=== PATIENT | male | born 1990 | race Caucasian/White ===

== ENCOUNTER 2018-05-21 21:54 | Inpatient (IN) | payer OTHER ==
[2018-05-21] MEDS ORDERED: NS 1,000 ML IV ONE ×2 (22:11)
--- NOTE | 2018-05-21 22:11 | EDPHY ---
H & P Stated Complaint: rlq abd pain start this am, vomit, fever this artem Time Seen by Provider: 05/21/18 22:11 HPI/ROS: HPI CHIEF COMPLAINT: Abdominal pain. Right lower quadrant. HISTORY OF PRESENT ILLNESS: This is a 27-year-old male, otherwise healthy denies significant medical history denies any significant abdominal surgery, presents emergency room with 1 day of abdominal pain. States early this morning he developed some abdominal pain. The discomfort is located in his right lower quadrant. It has been rather constant throughout the day. Describes it dull pain. Right lower quadrant. Associated nausea no diarrhea. He thought he was constipated. Patient denies fever, chest pain, shortness of breath. Past Medical History: Denies significant medical history Past Surgical History: Denies significant surgical history Social History: Denies drugs alcohol tobacco. Family History: Noncontributory ROS REVIEW OF SYSTEMS: 10 Systems were reviewed and negative with the exception of the elements mentioned in the history of present illness. Exam Constitutional triage nursing summary reviewed, vital signs reviewed, awake/ alert. Vital signs stable Eyes normal conjunctivae and sclera, EOMI, PERRLA. HENT normal inspection, atraumatic, moist mucus membranes, no epistaxis, neck supple/ no meningismus, no raccoon eyes. Respiratory clear to auscultation bilaterally, normal breath sounds, no respiratory distress, no wheezing. Cardiovascular rate normal, regular rhythm, no murmur, no edema, distal pulses normal. Gastrointestinal tender palpation right lower quadrant, no peritoneal signs,, no rebound, no guarding, normal bowel sounds, no distension, no pulsatile mass. Genitourinary no CVA tenderness. Musculoskeletal no midline vertebral tenderness, full range of motion, no calf swelling, no tenderness of extremities, no meningismus, good pulses, neurovascularly intact. Skin pink, warm, & dry, no rash, skin atraumatic. Neurologic awake, alert and oriented x 3, AAOx3, moves all 4 extremities equally, motor intact, sensory intact, CN II-XII intact, normal cerebellar, normal vision, normal speech. Psychiatric normal mood/affect. Heme/Lymph/Immune no lymphadenopathy. Differential Diagnosis: Differential diagnosis includes but is not limited to and in no particular order: Bowel obstruction, appendicitis, gallbladder disease, diverticulitis, colitis, enteritis, perforated viscus, gastritis, GERD , esophagitis, urinary tract infection, pyelonephritis, kidney stones Medical Decision Making: Plan for this patient IV establishment IV fluid bolus , CT scan abdomen pelvis with IV contrast rule out acute appendicitis. Basic blood work, NPO. Re-evaluation: CT scan abdomen pelvis with IV contrast concerning for ruptured appendicitis. Called to me by Dr. Raymond Plan for this patient 2nd L fluid, IV Invanz. NPO. I have asked surgery to see him Dr. Paulino. His abdominal exam he does not have peritonitis. However has right lower quadrant abdominal pain CT concerning for acute appendicitis. Source: Patient - Personal History Current Tetanus/Diphtheria Vaccine: Yes - Medical/Surgical History Hx Asthma: No Hx Chronic Respiratory Disease: No Hx Diabetes: No Hx Cardiac Disease: No Hx Renal Disease: No Hx Cirrhosis: No Hx Alcoholism: No Hx HIV/AIDS: No Hx Splenectomy or Spleen Trauma: No Other PMH: right hip abcess surg - Social History Smoking Status: Never smoked Constitutional: Initial Vital Signs Temperature (C) 36.9 C 05/21/18 21:58 Heart Rate 117 H 05/21/18 21:58 Respiratory Rate 20 05/21/18 21:58 Blood Pressure 136/90 H 05/21/18 21:58 O2 Sat (%) 96 05/21/18 21:58 O2 Delivery Mode Room Air Allergies/Adverse Reactions: No Known Allergies Allergy (Unverified 05/21/18 21:58) Home Medications: Medication Instructions Recorded NK [No Known Home Meds] 05/21/18 Medical Decision Making - Diagnostics Imaging Results: Imaging Impressions Abdomen CT 05/21/18 22:16 Impression: 1. Ill-defined thickened appendix with findings suspicious for surrounding phlegmon without definitive abscess. Probable ruptured appendicitis. Findings discussed with Chaka Bishop MD at 23:29 hour, 05/21/2018. - Data Points Laboratory Results: Laboratory Results 05/21/18 22:20 05/21/18 22:20 05/21/18 05/21/18 22:20 22:20 WBC 20.90 10^3/uL H 10^3/uL (3.80-9.50) RBC 5.45 10^6/uL 10^6/uL (4.40-6.38) Hgb 16.3 g/dL g/dL (13.7-17.5) Hct 47.5 % % (40.0-51.0) MCV 87.2 fL fL (81.5-99.8) MCH 29.9 pg pg (27.9-34.1) MCHC 34.3 g/dL g/dL (32.4-36.7) RDW 13.2 % % (11.5-15.2) Plt Count 298 10^3/uL 10^3/uL (150-400) MPV 10.2 fL fL (8.7-11.7) Neut % (Auto) 82.5 % H % (39.3-74.2) Lymph % (Auto) 11.6 % L % (15.0-45.0) Zapata % (Auto) 5.0 % % (4.5-13.0) Eos % (Auto) 0.2 % L % (0.6-7.6) Baso % (Auto) 0.2 % L % (0.3-1.7) Nucleat RBC Rel Count 0.0 % % (0.0-0.2) Absolute Neuts (auto) 17.24 10^3/uL H 10^3/uL (1.70-6.50) Absolute Lymphs (auto) 2.42 10^3/uL 10^3/uL (1.00-3.00) Absolute Monos (auto) 1.05 10^3/uL H 10^3/uL (0.30-0.80) Absolute Eos (auto) 0.05 10^3/uL 10^3/uL (0.03-0.40) Absolute Basos (auto) 0.04 10^3/uL 10^3/uL (0.02-0.10) Absolute Nucleated RBC 0.00 10^3/uL 10^3/uL (0-0.01) Immature Gran % 0.5 % % (0.0-1.1) Immature Gran # 0.10 10^3/uL 10^3/uL (0.00-0.10) Sodium 135 mEq/L mEq/L (135-145) Potassium 4.4 mEq/L mEq/L (3.5-5.2) Chloride 104 mEq/L mEq/L (97-110) Carbon Dioxide 20 mEq/l L mEq/l (22-31) Anion Gap 11 mEq/L mEq/L (6-14) BUN 10 mg/dL mg/dL (7-23) Creatinine 0.7 mg/dL mg/dL (0.7-1.3) Estimated GFR > 60 Glucose 109 mg/dL H mg/dL (70-100) Calcium 10.2 mg/dL mg/dL (8.5-10.4) Total Bilirubin 1.5 mg/dL H mg/dL (0.1-1.4) Conjugated Bilirubin 0.3 mg/dL mg/dL (0.0-0.5) Unconjugated Bilirubin 1.2 mg/dL H mg/dL (0.0-1.1) AST 33 IU/L IU/L (17-59) ALT 47 IU/L IU/L (21-72) Alkaline Phosphatase 58 IU/L IU/L (38-126) Total Protein 8.6 g/dL H g/dL (6.3-8.2) Albumin 5.1 g/dL H g/dL (3.5-5.0) Lipase 65 IU/L IU/L (23-300) Medications Given: Discontinued Medications Hydromorphone HCl (Dilaudid) 0.5 mg IVP EDNOW ONE Stop: 05/21/18 22:17 Last Admin: 05/21/18 22:31 Dose: 0.5 mg Sodium Chloride (Ns) 1,000 mls @ 0 mls/hr IV EDNOW ONE; Wide Open PRN Reason: Protocol Stop: 05/21/18 22:12 Last Admin: 05/21/18 22:28 Dose: 1,000 mls Sodium Chloride (Ns) 1,000 mls @ 0 mls/hr IV EDNOW ONE; Wide Open PRN Reason: Protocol Stop: 05/21/18 22:12 Last Admin: 05/21/18 22:32 Dose: 1,000 mls Ondansetron HCl (Zofran) 4 mg IVP EDNOW ONE Stop: 05/21/18 22:18 Last Admin: 05/21/18 22:28 Dose: 4 mg Departure - Departure Disposition: [facility] Clinical Impression: Abdominal pain Qualifiers: Abdominal location: unspecified location Qualified Code(s): R10.9 - Unspecified abdominal pain Acute appendicitis Qualifiers: Acute appendicitis type: with localized peritonitis Appendicitis gangrene presence: without gangrene Appendicitis perforation presence: unspecified whether perforation present Appendicitis abscess presence: without abscess Qualified Code(s): K35.30 - Acute appendicitis with localized peritonitis, without perforation or gangrene Condition: Fair
[2018-05-21] MEDS ORDERED: HYDROmorphONE/DILAUDID 2 MG/ML INJ IVP ONE (22:16)
[2018-05-21] MEDS ORDERED: ONDANSETRON 4 MG/2 ML VIAL IVP ONE (22:17)
[2018-05-21 22:32] LABS: PLATELET COUNT 298 10^3/uL (150-400)
[2018-05-21] MEDS ORDERED: IOHEXOL 350mgI/ML (OMNIPAQUE) 150 ML BTL IV ONE (22:50)
[2018-05-21] MEDS ORDERED: ERTAPENEM 1 GM in NS 100 ML IV ONE (23:34)
[2018-05-22] MEDS ORDERED: HEPARIN 5,000 UNIT/0.5 ML INJ ONE (00:07)
[2018-05-22] MEDS ORDERED: ceFAZolin 1 GM/5 ML SYR ONE (00:07)
[2018-05-22] MEDS ORDERED: ONDANSETRON 4 MG/2 ML VIAL IVP PRN ×2 (00:36→01:22)
[2018-05-22] MEDS ORDERED: ACETAMINOPHEN 500 MG TAB PO SCH (00:45)
[2018-05-22] MEDS ORDERED: MIDAZOLAM 2 MG/2 ML VIAL ONE (00:59)
[2018-05-22] MEDS ORDERED: fentaNYL 100 MCG/2 ML INJ ONE ×3 (00:59→03:18)
[2018-05-22] MEDS ORDERED: PROPOFOL/EMULSION 500 MG/50 ML BOTTLE IV ONE (01:00)
--- NOTE | 2018-05-22 01:12 | GHP ---
[f rep st] PREOP HISTORY AND PHYSICAL DATE OF ADMISSION: 05/21/2018 ADMITTING DIAGNOSIS: Acute appendicitis. HISTORY: The patient is a 27-year-old male who over the last year has had 5 episodes of similar abdominal pain. This morning he had coffee for breakfast as usual. At approximately 6 in the morning, had a generalized abdominal discomfort and noted that he was burping. At noon, he took Yumiko-Mantoloking but without benefit. At 3 p.m., the pain moved to the periumbilical area. He described himself as being "gaggy" and vomited 3 times. At 9:30, his nausea became more prominent when he came to the ER as his pain localized to the right lower quadrant. There is no history of prior upper respiratory tract infection or diarrhea. There is no history of antibiotic use in the last 6 months or travel in the last 6 months. There is no personal or family history of inflammatory bowel disease. There is no prior history of surgery on his abdomen. SOCIAL HISTORY: He smoked from ages 16 to 23, a 1/2 pack a day. He drinks 3-4 drinks per week. ALLERGIES: He has no known drug allergies. MEDICATIONS: He does not take any medications. PAST SURGICAL HISTORY: He has had a cyst removed from his right buttocks twice. PAST MEDICAL HISTORY: There is no history of rheumatic fever, tuberculosis, hepatitis, or transfusions. REVIEW OF SYSTEMS: His father has hypertension and at 1 point he had elevated blood pressure. He was placed on a low-salt diet and returned for followup check and his blood pressure was fine. He has never had an issue since that time. He wears lenses for visual correction. He had a heart murmur as a young man. He has history of shingles in the past. There are no limits on his activities. No history of steroid use in the last 6 months. FAMILY HISTORY: His mother is 63 years old, and alive and well. His father is 64, and alive and well. The patient has a 31-year-old brother who is healthy. There are no bleeding disorders, clotting disorders, difficulty with anesthesia in the patient of the family. PHYSICAL EXAMINATION: GENERAL: He is seen lying in bed 9 in the ER. He is awake, interactive, and quite pleasant. VITAL SIGNS: His blood pressure is 153 /89 with a heart rate of 104, respirations are 20, room air sat is 96%, temperature is 36.9. HEENT: His skull is normocephalic and atraumatic. NEUROLOGIC: There are no focal or lateralizing neurologic findings. NECK: There are no carotid bruits. Thyroid is normal to palpation. LYMPHATICS: There is no cervical, supraclavicular, axillary, or inguinal lymphadenopathy. BACK: Unremarkable. LUNGS: Clear to auscultation. CARDIAC: Shows S1, S2 to be normal, normal split of S2, without murmurs, rubs, or gallops. ABDOMEN: Slightly distended. Bowel sounds are distinctly hypoactive. Psoas and obturator signs are negative. He is tender with cough 2 fingerbreadths below McBurney's point. To palpation on a scale of 1-10, left upper quadrant is 1 with mid abdomen is 1, left lower quadrant is 1, epigastrium is 1, periumbilical area is 2, suprapubic area is 1, right upper quadrant is 1, right mid abdomen is 6, right lower quadrant is 4. LABORATORY DATA: His white count is 21,000 with 83% neutrophils. Hematocrit is 47 and platelet count is 298. 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 His CAT scan shows the appendix which was read by Radiology as suggestive of local perforation. Though I see the appendix has a hyperemic wall and is fluid- filled, I do not see any periappendiceal smudging to account for that diagnosis. There is no fluid in the pelvis. PLAN: We discussed the options including antibiotic approach. He wished to proceed as outlined with a definitive surgery. /[id number]/MODL MTDD
[2018-05-22] MEDS ORDERED: NALOXONE HCL 0.4 MG/ML INJ IVP PRN (01:22)
[2018-05-22] MEDS ORDERED: DEXAMETHASONE 4 MG/ML VIAL IVP PRN (01:22)
[2018-05-22] MEDS ORDERED: DIAZEPAM 5 MG/ML 1 ML SYR IVP PRN (01:22)
[2018-05-22] MEDS ORDERED: PROMETHAZINE HCL 25 MG/ML INJ IVP PRN (01:22)
[2018-05-22] MEDS ORDERED: MEPERIDINE 25 MG/0.5 ML AMP IVP PRN (01:22)
[2018-05-22] MEDS ORDERED: ALBUTEROL 3 ML DEYVIAL IH PRN (01:22)
[2018-05-22] MEDS ORDERED: LR 500 ML IV PRN (01:22)
--- NOTE | 2018-05-22 01:22 | PDANEPAE ---
ANE Past Medical History - Pulmonary History Hx Oxygen in Use at Home: No Hx Sleep Apnea: No - Endocrine History Hx Diabetes: No ANE Review of Systems Review of Systems: ANE Patient History - Allergies Allergies/Adverse Reactions: No Known Allergies Allergy (Unverified 05/21/18 21:58) - Smoking Hx Smoking Status: Never smoked ANE Labs/Vital Signs - Labs Result Diagrams: 05/21/18 22:20 05/21/18 22:20 - Vital Signs Blood Pressure: 143/91 Heart Rate: 119 Respiratory Rate: 22 O2 Sat (%): 95 Height: 172.72 cm Weight: 81.647 kg ANE Physical Exam - Airway Neck exam: FROM Mallampati Score: Class 1 Mouth exam: normal dental/mouth exam - Pulmonary Pulmonary: no respiratory distress, no rales or rhonchi - Cardiovascular Cardiovascular: regular rate and rhythym, no murmur, rub, or gallop - ASA Status ASA Status: E ANE Anesthesia Plan Anesthesia Plan: general endotracheal anesthesia
[2018-05-22] MEDS ORDERED: KETOROLAC 30 MG/1 ML SDV ONE (01:26)
[2018-05-22] MEDS ORDERED: METOCLOPRAMIDE 10 MG/2 ML VIAL ONE (01:26)
[2018-05-22] MEDS ORDERED: ROCURONIUM 50 MG/5 ML VIAL ONE (01:26)
[2018-05-22] MEDS ORDERED: SUGAMMADEX SODIUM 200 MG/2 ML VIAL IVP ONE ×2 (01:26→02:50)
[2018-05-22] MEDS ORDERED: ONDANSETRON 4 MG/2 ML VIAL ONE (01:26)
[2018-05-22] MEDS ORDERED: RANITIDINE 50 MG/2 ML VIAL ONE (01:26)
[2018-05-22] MEDS ORDERED: LIDOCAINE 2% 5 ML SDV ONE (01:26)
[2018-05-22] MEDS ORDERED: PROPOFOL 200 MG/20 ML VIAL ONE (01:52)
--- NOTE | 2018-05-22 03:00 | POSTANESTH ---
Post Anesthetic Evaluation Cardiovascular Status: Normal, Stable, Similar to Pre-Op Cond Respiratory Status: Normal, Stable, Similar to Pre-op Cond. Level of Consciousness/Mental Status: Moderately Sleepy Pain Control: Adequate, Prn Tx Ordered Nausea/Vomiting Control: Adequate, Prn Tx Ordered Complications Possibly Related to Anesthesia: None Noted
--- NOTE | 2018-05-22 03:04 | POSTOPPROG ---
Post Op Note Date of Operation: 05/22/18 Surgeon: Parag Paulino Pre-op Diagnosis: acute possibly ruptured ( locally) appendicitis Post-op Diagnosis: acute and chronic appendicitis with localized peritonitis, small LIH Indication: acute possibly ruptured ( locally) appendicitis Procedure: Laparoscopic appendectomy Findings: acute and chronic appendicitis with localized peritonitis, small LIH Inf/Abcess present in the surg proc area at time of surgery?: Yes Depth: Organ Space EBL: Minimal Total fluids administered: 800cc Complications: none Drains: Lito Vilchis Specimen(s): appendix peritoneal fluid for C&S
[2018-05-22] MEDS: fentaNYL 100 MCG/2 ML INJ IVP PRN ×3 (03:21→03:54)
--- NOTE | 2018-05-22 03:57 | GOP ---
[f rep st] OPERATIVE REPORT DATE OF OPERATION: 05/22/2018 SURGEON: Parag Paulino MD ANESTHESIA: General endotracheal. ANESTHESIOLOGIST: Jolly Berrios M.D. PREOPERATIVE DIAGNOSIS: Acute, possibly ruptured (locally) appendicitis. POSTOPERATIVE DIAGNOSIS: Acute and chronic appendicitis with local peritonitis and small left inguinal hernia. PROCEDURE PERFORMED: Laparoscopic appendectomy. There was purulent material noted in the pelvis. This was sampled for culture and sensitivity. FINDINGS: Acute and chronic appendicitis with local peritonitis and small left inguinal hernia. SPECIMENS: Appendix and peritoneal fluid for C and S. ESTIMATED BLOOD LOSS: Between 10 and 20 mL. INDICATIONS: Acute, possibly ruptured (locally) appendicitis. DESCRIPTION OF PROCEDURE: The patient was placed on the operating table in supine position. After induction of adequate general endotracheal anesthesia, the abdomen was carefully prepped and draped. A surgical time-out was carried out and agreed to by all members of the operative team. A transverse suprapubic and oblique left lower quadrant incisions were planned ( 5 mm) and an infraumbilical fold incision was planned at the umbilicus. All incisions were made sharply and deepened with Bovie electrocautery cautery. The umbilicus dissection was carried down bluntly to expose the anterior rectus sheath bilaterally. Allis clamps were used to elevated the rectus sheath. It was divided in the midline with Bovie electrocautery. A pursestring of 0 PDS was placed at the fascia level. The peritoneum was entered. An 11-12 mm disposable Paige trocar was introduced. Intra-abdominal insufflation was carried out to 15 mmHg. The patient was placed in Trendelenburg.. 5 mm ports were placed in left lower quadrant in the suprapubic region. A small amount of purulent material noted in the pelvis. This was aspirated to be sent for culture. There was a small left indirect inguinal hernia noted. The terminal ileum was draped over inflammatory mass in the right lower quadrant. Careful and tedious dissection was carried out to reflect the terminal ileum off the mass and to carefully elevate it. First, the peritoneum was divided along the white line of Toldt to allow medial rotation. The appendiceal mass was carefully elevated. Using a Harmonic scalpel, it was carefully cleared on inferior aspect. Long dissection was carried out to free the appendix to its base on the cecum. A small area of drainage was identified. The cecum was transected with 45 mm Endo-MATTHEW stapler in 2 applications. Laterally, the cecal transection had to be completed with the Harmonic scalpel. That area of the staple line was secured with an endo- loop to make certain of a secure closure. The appendix had been delivered in EndoCatch bag via the umbilical port site. Pneumoperitoneum was re-established. Copious irrigation with heparin and Ancef- containing irrigant was carried out. The dissection was carefully re-evaluated to make sure that there was no ureteral injury. A 10 flat MARCIAL drain was placed in the pelvis and led out through the left lower quadrant trocar site. It was sutured at the skin level with 3-0 silk. The suprapubic port was removed. The umbilical port was removed. The fascia was grasped at its midpoint on either side with an Allis clamp. Inverted simple suture of #0 PDS was placed and tied. The infraumbilical pursestring was now tied. The umbilical port site was well irrigated with heparin and Ancef -containing irrigant. Hemostasis was excellent. Both the suprapubic and the infraumbilical incisions were closed with inverted simple sutures of #4 Monocryl. Mastisol and Steri-Strips were placed. 4x4s were placed around the drain. Mastisol and Steri-Strips were placed at the other incisions. Band- Aids were placed over the Steri-Strips. The patient was transferred to recovery in stable and satisfactory condition. FLUIDS ADMINISTERED: 800 mL. COMPLICATIONS: None. DRAINS: Lito-Vilchis in pelvis. /[id number]/MODL MTDD
[2018-05-22] MEDS: ACETAMINOPHEN 500 MG TAB PO SCH ×3 (04:42→21:58)
[2018-05-22] MEDS: LR 1,000 ML IV SCH ×2 (04:54→16:29)
[2018-05-22] MEDS: KETOROLAC 30 MG/1 ML SDV IVP SCH ×2 (05:05→11:40)
[2018-05-22] MEDS: HYDROmorphONE/DILAUDID 1 MG/ML INJ IVP PRN ×3 (05:05→21:04)
[2018-05-22] MEDS: ERTAPENEM 1 GM in NS 100 ML IV SCH (08:36)
[2018-05-22 08:39] LABS: PLATELET COUNT 241 10^3/uL (150-400)
--- NOTE | 2018-05-22 12:25 | SOAPPROG ---
SOAP Progress Note Assessment/Plan: Assessment/Plan: 27yo M POD#0 s/p lap appy for perforated appendicitis Pain control MARCIAL drain to suction IV antibiotics Continue NPO until return of bowel function Dispo: inpt until pain controlled and return of bowel function. Seen with Dr. Velez. S: complains of increased pain at this moment. No flatus yet. No nausea. O: laying in bed, comfortable, NAD No increased WOB Abd soft, nondistended, +tenderness to palpation Incisions CDI MARCIAL drain purulence mixed with serosanguinous Objective: Vital Signs Temp Pulse Resp BP Pulse Ox 36.8 C 115 H 16 127/67 H 97 05/22/18 11:16 05/22/18 11:16 05/22/18 11:16 05/22/18 11:16 05/22/18 11:16 Microbiology 05/22/18 01:50 Mycobacterial Smear (FABBY) - Final Other - Eswab Mycobacterial Culture - Final Laboratory Results 05/22/18 07:45 05/22/18 07:45 05/21/18 05/22/18 05/23/18 05:59 05:59 05:59 Intake Total 2900 50 Output Total 250 1531 Balance 2650 -1485 ICD10 Worksheet Patient Problems: Problems Problem Status Onset Abdominal pain Acute Acute appendicitis Acute
--- NOTE | 2018-05-22 15:25 | ASMTCMCOM ---
CM Note CM Note Notes: Chart reviewed for discharge planning purposes. 27 year old s/p appendectomy. No current needs identified. CM available should needs arise. Plan: Likely to dc home no needs when medically cleared. Date Signed: 05/22/2018 10:03 AM Electronically Signed By:Deysi Schmitz RN
[2018-05-22] MEDS: KETOROLAC 15 MG/1 ML SDV IVP SCH ×2 (18:06→23:40)
[2018-05-23] MEDS: LR 1,000 ML IV SCH ×2 (02:12→16:59)
[2018-05-23] MEDS: HYDROmorphONE/DILAUDID 1 MG/ML INJ IVP PRN ×2 (04:02→22:32)
[2018-05-23] MEDS: KETOROLAC 15 MG/1 ML SDV IVP SCH ×4 (05:56→23:41)
[2018-05-23] MEDS: ACETAMINOPHEN 500 MG TAB PO SCH ×3 (05:56→21:14)
[2018-05-23] MEDS: oxyCODONE IR 5 MG TAB PO PRN ×3 (07:34→21:14)
[2018-05-23 08:38] LABS: PLATELET COUNT 204 10^3/uL (150-400)
[2018-05-23] MEDS: ERTAPENEM 1 GM in NS 100 ML IV SCH (09:21)
--- NOTE | 2018-05-23 11:59 | SOAPPROG ---
SOAP Progress Note Assessment/Plan: Assessment/Plan: 27yo M POD#1 s/p lap appy for perforated appendicitis Pain controlled MARCIAL drain to suction Invanz - awaiting final cultures encourage ambulation Advance diet Urinating without difficulty Dispo: inpt until pain controlled and tolerating. S: episode of increased pain this morning controlled with hydromrophone. Passing gas spontaneously, feels slightly more distended today, but much less painful. No nausea/vomiting. Tolerated jello at breakfast. O: laying in bed, comfortable, NAD No increased WOB, lungs clear to auscultation. Regular HR, normal S1 S2, no peripheral edema, 2+ radial/DP pulses +BS, Abd soft, slightly distended, +tenderness to palpation RLQ Incisions CDI MARCIAL drain: 5 mls thick serosanguinous fluid 05/23/18 11:58 05/23/18 12:00 05/23/18 12:13 05/23/18 14:50 05/23/18 18:17 Objective: Vital Signs Temp Pulse Resp BP Pulse Ox 36.3 C 78 16 126/79 H 94 05/23/18 11:07 05/23/18 11:07 05/23/18 11:07 05/23/18 11:07 05/23/18 11:07 Microbiology 05/22/18 01:50 Gram Stain - Final Other - Eswab 05/22/18 01:50 Mycobacterial Smear (FABBY) - Final Other - Eswab Mycobacterial Culture - Final Laboratory Results 05/23/18 08:19 05/22/18 07:45 05/22/18 05/23/18 05/24/18 05:59 05:59 05:59 Intake Total 2900 1275 Output Total 250 1452 200 Balance 2650 -1471 -200 ICD10 Worksheet Patient Problems: Problems Problem Status Onset Abdominal pain Acute Acute appendicitis Acute
--- NOTE | 2018-05-23 17:56 | PDMN ---
Medical Necessity Medical necessity: [facility] S185 Lap Appy: 27 yo w/ acute appendicitis, s/p lap appy , found to be ruptured/perforated, pt requires additional MN as still on IV antibx, MARCIAL drain to suction w/ purulent drainage in place, developed increased pain post op requiring IV Dilaudid, still working on advancing diet, remains on IV fluids and IV antibx. Meets [facility] IP criteria med nec for infection and not meeting d/c criteria per comments above. Change to IP status 05/23/18@1746 per MD order.
[2018-05-24] MEDS: oxyCODONE IR 5 MG TAB PO PRN (02:33)
[2018-05-24] MEDS: LR 1,000 ML IV SCH (02:34)
[2018-05-24 04:50] LABS: PLATELET COUNT 209 10^3/uL (150-400)
[2018-05-24] MEDS: KETOROLAC 15 MG/1 ML SDV IVP SCH ×4 (05:40→23:48)
[2018-05-24] MEDS: ACETAMINOPHEN 500 MG TAB PO SCH ×3 (05:40→21:36)
[2018-05-24] MEDS: ERTAPENEM 1 GM in NS 100 ML IV SCH (09:46)
--- NOTE | 2018-05-24 09:57 | SOAPPROG ---
SOAP Progress Note Assessment/Plan: Assessment/Plan: 27yo M POD#2 s/p lap appy for perforated appendicitis Pain controlled Sore throat likely 2/2 intubation MARCIAL drain to suction culture-strep anginosus and influenza-transition to oral abx on discharge encourage ambulation Regular diet encourage PO intake to advance bowel function as concern that constipation is contributing to pain Urinating without difficulty Discussed exercise restrictions after DC May need to take another week off work Dispo: inpt until pain controlled and tolerating diet advancement. Likely home tomorrow S: episode of increased pain this morning controlled with ketorolac. Passing gas spontaneously. C/O sore throat. No nausea/vomiting. O: laying in bed, comfortable, NAD No increased WOB, lungs clear to auscultation. Regular HR, normal S1 S2, no peripheral edema, 2+ radial/DP pulses +BS, Abd soft, slightly distended, +tenderness to palpation RUQ, hypogastric area Incisions CDI MARCIAL drain: 10 cc serosanguinous fluid-minimal purulence today 05/24/18 09:49 05/24/18 14:49 Objective: Vital Signs Temp Pulse Resp BP Pulse Ox 36.8 C 79 18 131/76 H 93 05/24/18 07:14 05/24/18 07:14 05/24/18 07:14 05/24/18 07:14 05/24/18 07:14 Laboratory Results 05/24/18 04:28 05/23/18 05/24/18 05/25/18 05:59 05:59 05:59 Intake Total 1400 Output Total 995 Balance 405 ICD10 Worksheet Patient Problems: Problems Problem Status Onset Abdominal pain Acute Acute appendicitis Acute
[2018-05-24] MEDS ORDERED: LACTULOSE 20 GM/30 ML UDCUP PO PRN (14:06)
[2018-05-24] MEDS ORDERED: POLYETHYLENE GLYCOL 3350 17 GM PKT PO PRN (14:06)
[2018-05-24] MEDS ORDERED: MAGNESIUM HYDROXIDE 30 ML UDCUP PO PRN (14:06)
[2018-05-24] MEDS ORDERED: BISACODYL 10 MG SUPP PR PRN (14:06)
[2018-05-24] MEDS: SENNOSIDES/DOCUSATE SODIUM TAB PO SCH (19:49)
[2018-05-24] MEDS: HYDROmorphONE/DILAUDID 1 MG/ML INJ IVP PRN (23:53)
[2018-05-25] MEDS: KETOROLAC 15 MG/1 ML SDV IVP SCH ×2 (05:53→12:20)
[2018-05-25] MEDS: ACETAMINOPHEN 500 MG TAB PO SCH (05:53)
[2018-05-25] MEDS: ERTAPENEM 1 GM in NS 100 ML IV SCH (09:40)
[2018-05-25] MEDS: SENNOSIDES/DOCUSATE SODIUM TAB PO SCH (09:40)
[2018-05-25 11:43] VITALS: BP 143/87
--- NOTE | 2018-05-25 13:12 | SOAPPROG ---
SOAP Progress Note Assessment/Plan: Assessment/Plan: 27yo M POD#3 s/p lap appy for perforated appendicitis Pain controlled MARCIAL drain removal prior to discharge culture-strep anginosus and h parainfluenza-transition to oral abx on discharge encourage ambulation Tolerating regular diet Work excuse in chart Dispo: home today S: feeling well. pain controlled. tolerating regular diet. O: laying in bed, comfortable, NAD No increased WOB +BS, soft, nondist. nontender Incisions CDI MARCIAL drain removed Objective: Vital Signs Temp Pulse Resp BP Pulse Ox 36.6 C 69 16 143/87 H 98 05/25/18 11:40 05/25/18 11:40 05/25/18 11:40 05/25/18 11:40 05/25/18 11:40 Laboratory Results 05/24/18 04:28 05/24/18 05/25/18 05/26/18 05:59 05:59 05:59 Intake Total 1400 1300 Output Total 995 470 Balance 405 830 ICD10 Worksheet Patient Problems: Problems Problem Status Onset Abdominal pain Acute Acute appendicitis Acute
--- NOTE | 2018-05-25 14:05 | ASMTLACE ---
[facility] Length of stay for Answers: 2 days current admission Acuity / Level of Answers: Yes Care: Did the patient have an inpatient admission? # of Emergency department Answers: 1-2 visits in the last 6 months Score: 6 Date Signed: 05/25/2018 02:05 PM Electronically Signed By:Paulina Krishna RN
--- NOTE | 2018-05-25 14:09 | ASMTDCNOTE ---
Case Management Discharge Discharge Order Complete? Answers: Yes Patient to Obtain Answers: Independently Medications Discharge Comments Notes: Patient is medically ready for d/c today. No CM needs identified. We are available for changes/needs. Date Signed: 05/25/2018 02:09 PM Electronically Signed By:Paulina Krishna RN
--- NOTE | 2018-05-25 16:59 | GDS ---
[f rep st] DISCHARGE SUMMARY ADMITTING DIAGNOSIS: Perforated appendicitis. SECONDARY DIAGNOSIS: None. REASON FOR ADMISSION: A 27-year-old man who presents to the emergency room complaining of abdominal pain. CT scan showed perforated appendicitis. He was admitted for surgical intervention, pain contr ol, and observation. HOSPITAL COURSE: He was taken to the operating room on 05/22/2018, by Dr. James Paulino for laparoscop ic appendectomy with washout. A drain was placed at the time of surgery. There was gross purulent f luid in his pelvis at the time of surgery. He received IV Invanz during his hospital stay. His diet was slowly advanced and, by postoperative day #3, his pain was well controlled with oral pain medica tion, he was ambulating independently, he was tolerating a regular diet, and the MARCIAL drain output was serous without purulence. CONDITION: He is being discharged home in stable condition. Pain is controlled, tolerating regular diet, ambulating independently. DISCHARGE MEDICATIONS: He was sent home with prescription for 1 week of Augmentin as well as pain me dication. Please see EMR for further detail. Instructed to resume home medicines. DISCHARGE INSTRUCTIONS/FOLLOWUP: He will follow up in 2 weeks for a routine evaluation. A work excu se was provided. He will avoid heavy lifting, pushing, or pulling greater than 10 pounds for 2 weeks . He may shower. Avoid hot tubs, tub baths, and pools until incisions are healed. Call with any wo rsening symptoms, questions, or concerns. /[id number]/MODL
== END 2018-05-25 15:42 | disposition home or self-care (01) | DRG 340 ==
LOC: F1N 05-22 04:10 → OBSVTOIN 05-23 17:46
PROVIDERS: ADMIT Surgery; ATTEND Surgery
PROC: 0DTJ4ZZ Resection of Appendix, Percutaneous Endoscopic Approach (ICD-10-PCS; principal; 2018-05-22 01:00)
DX: K35.32 Acute appendicitis with perforation, localized peritonitis, and gangrene, without abscess (principal); K40.90 Unilateral inguinal hernia, without obstruction or gangrene, not specified as recurrent; E86.9 Volume depletion, unspecified
CPT/HCPCS: 96365; G0378; J1170; J1335; J1644; J1885; J2250; J2405; J2704; J2765; J2780; J3010; Q9967